=== PATIENT | male | born 1960 | race Caucasian/White ===

== ENCOUNTER 2017-06-15 21:38 | Emergency (ER) | payer OTHER ==
[~2017-06-15] VITALS: Ht 170.2 cm; Wt 84.0 kg
[2017-06-15] MEDS ORDERED: MOTRIN600 MG PO (23:49)
[2017-06-15] MEDS ORDERED: PERCOCET 5/31 TABLET PO (23:49)
[2017-06-16 00:26] VITALS: BP 137/72
== END 2017-06-16 00:27 | disposition home or self-care (01) ==
LOC: EME 21:38
DX: S70.01XA Contusion of right hip, initial encounter (principal); W18.30XA Fall on same level, unspecified, initial encounter; Y92.039 Unspecified place in apartment as the place of occurrence of the external cause; I10 Essential (primary) hypertension; F17.200 Nicotine dependence, unspecified, uncomplicated
CPT/HCPCS: 73502; 99281; 99284

== ENCOUNTER 2017-08-11 11:19 | Emergency (ER) | payer OTHER ==
[~2017-08-11] VITALS: Ht 180.3 cm; Wt 81.8 kg
[~2017-08-11 11:19] MED LIST: MOTRIN600 MG PO; PERCOCET 5/31 TABLET PO
[2017-08-11 12:41] LABS: HEMATOCRIT 48.6 % (38.0-50.0); HEMOGLOBIN 16.9 G/DL (12.5-16.6); MCH 33.3 PG (29.0-34.0); MCHC 34.8 G/DL (30.0-36.0); MCV 95.9 FL (86-99); PLATELET COUNT 179 K/uL (156-360); RBC DIS.WIDTH-CV 14.4 % (11.8-14.6); RBC DIS.WIDTH-SD 50.7 % (39-53); RED BLOOD COUNT 5.07 M/uL (4.00-5.50); WHITE BLOOD COUNT 10.8 K/uL (4.1-10.2)
[2017-08-11 12:50] LABS: CHLORIDE 104 mEq/L (99-109); POTASSIUM 4.7 mEq/L (3.7-5.4); SODIUM 139 mEq/L (136-147)
[2017-08-11 12:51] LABS: GLUCOSE 93 mg/dL (70-99)
[2017-08-11 12:55] LABS: CREATININE 1.2 mg/dL (0.6-1.3); GFR ESTIMATE (CALCULATED) > 59 mL/min/ (58.99-99999)
[2017-08-11 12:56] LABS: UREA NITROGEN (BUN) 15 mg/dL (9-23)
[2017-08-11] MEDS ORDERED: NAPROSYN500 MG PO (14:13)
[2017-08-11 14:36] VITALS: BP 176/104
== END 2017-08-11 14:40 | disposition home or self-care (01) ==
LOC: EME 11:19
PROVIDERS: Physician Assistant
DX: S70.01XA Contusion of right hip, initial encounter (principal); W01.0XXA Fall on same level from slipping, tripping and stumbling without subsequent striking against object, initial encounter; K57.30 Diverticulosis of large intestine without perforation or abscess without bleeding; I10 Essential (primary) hypertension; F17.200 Nicotine dependence, unspecified, uncomplicated
CPT/HCPCS: 73502; 73552; 74177; 80048; 85027; 99281; 99284; J1885; J7030

== ENCOUNTER 2017-09-16 17:37 | Emergency (ER) | payer OTHER ==
[~2017-09-16] VITALS: Ht 180.3 cm; Wt 85.2 kg
[~2017-09-16 17:37] MED LIST changes: +NAPROSYN500 MG PO
[2017-09-16 18:23] LABS: HEMOGLOBIN 16.6 G/DL (12.5-16.6); MCH 34.5 PG (29.0-34.0); MCHC 35.3 G/DL (30.0-36.0); MCV 97.7 FL (86-99); PLATELET COUNT 164 K/uL (156-360); RBC DIS.WIDTH-CV 12.9 % (11.8-14.6); RBC DIS.WIDTH-SD 46.4 % (39-53); RED BLOOD COUNT 4.81 M/uL (4.00-5.50); WHITE BLOOD COUNT 9.4 K/uL (4.1-10.2)
[2017-09-16 18:33] LABS: ALBUMIN 4.2 g/dL (3.2-4.8)
[2017-09-16 18:34] LABS: CHLORIDE 106 mEq/L (99-109); POTASSIUM 4.3 mEq/L (3.7-5.4); SODIUM 140 mEq/L (136-147)
[2017-09-16 18:36] LABS: GLUCOSE 96 mg/dL (70-99); TOTAL PROTEIN 7.3 g/dL (6.4-8.3)
[2017-09-16 18:38] LABS: TOTAL BILIRUBIN 0.5 mg/dL (0.0-1.0)
[2017-09-16 18:39] LABS: ALKALINE PHOSPHATASE 104 IU/L (3-129)
[2017-09-16 18:40] LABS: CREATININE 1.3 mg/dL (0.6-1.3); GFR ESTIMATE (CALCULATED) > 59 mL/min/ (58.99-99999)
[2017-09-16 18:41] LABS: AST (GOT) 38 IU/L (2-34); UREA NITROGEN (BUN) 14 mg/dL (9-23)
[2017-09-16 18:43] LABS: ALT (GPT) 32 IU/L (3-49)
[2017-09-16 18:53] LABS: PTT 31.1 SEC (25-37)
[2017-09-16 19:03] LABS: TROP-I INTERPRETATION NEGATIVE; TROPONIN-I < 0.01 ng/mL (0.0-0.30)
[2017-09-16 20:29] LABS: APPEARANCE CLEAR ((CLEAR)); BILIRUBIN NEGATIVE; BLOOD NEGATIVE; COLOR YELLOW ((YELLOW)); GLUCOSE (STRIP) NEGATIVE; KETONES NEGATIVE; LEUKOCYTES NEGATIVE; NITRITE NEGATIVE; PROTEIN (STRIP) 100; SPECIFIC GRAVITY 1.026 (1.000-1.030); UROBILINOGEN 0.2 MG/DL (0.2-1.0)
[2017-09-16 20:41] LABS: BACTERIA NONE SEEN /HPF; EPITHELIAL CELLS NONE SEEN /HPF; MUCUS NONE SEEN /LPF; RED BLOOD CELLS 0-5 /HPF (0-5); UCUL ADDED? NO; WHITE BLOOD CELLS 0-5 /HPF (0-5)
[2017-09-16] MEDS ORDERED: PERCOCET 10/1 TABLET PO (22:54)
[2017-09-16 23:05] VITALS: BP 141/94
== END 2017-09-16 23:06 | disposition home or self-care (01) ==
LOC: EME 17:37
PROVIDERS: Emergency Medicine
DX: N43.3 Hydrocele, unspecified (principal); R10.32 Left lower quadrant pain; I71.4 Abdominal aortic aneurysm, without rupture; I10 Essential (primary) hypertension; F17.200 Nicotine dependence, unspecified, uncomplicated
CPT/HCPCS: 74174; 76870; 80047; 80053; 81003; 83605; 84484; 85027; 85610; 85730; 86850; 86900; 86901; 93005; 99281; 99285; J3010; J7030